=== PATIENT | female | born 1940 | race Caucasian/White ===

== ENCOUNTER → 2023-09-26 11:25 | Outpatient (REF) | payer MEDICARE, BC, SELFPAY | LOC: HWRAD 11:25 | PROVIDERS: ATTENDING PHYSICIAN Family Medicine | DX: M81.0 Age-related osteoporosis without current pathological fracture (principal) | CPT/HCPCS: 77080 ==

== ENCOUNTER 2023-11-17 20:06 | Emergency (ER) | payer MEDICARE, BC, SELFPAY ==
[2023-11-17 20:11] VITALS: BP 161/100
[2023-11-17 20:26] LABS: % Basophils 1.2 % (0-2); % Eosinophils 3.9 % (0-6); % Immature Granulocytes 1.1 % (0-0.5); % Lymphocytes 26.1 % (20.5-51.1); % Monocytes 12.2 % (1.7-9.3); % Neutrophils 55.5 % (42.2-75.2); Absolute Basophils 0.1 10^3/uL (0-0.2); Absolute Eosinophils 0.4 10^3/uL (0-0.7); Absolute Immature Granulocytes 0.1 10^3/uL (0-0.05); Absolute Lymphocytes 2.6 10^3/uL (1.2-3.4); Absolute Monocytes 1.2 10^3/uL (0.1-0.6); Absolute Neutrophils 5.6 10^3/uL (1.4-6.5); Hematocrit 35.1 % (37.0-47.0); Hemoglobin 12.7 g/dL (12.0-16.0); Mean Corp Hgb Conc. 36.2 g/dL (33.0-37.0); Mean Corpuscular Volume 99.4 fL (81.0-99.0); Mean Platelet Volume 9.8 fL (7.4-10.4); Nucleated Red Blood Cells % 0 %; Platelet Count 111 10^3/uL (130-400); Red Blood Cell Count 3.53 10^6/uL (4.20-5.40); Red Cell Dist. Width 13.4 % (11.5-14.5); White Blood Cell Count 10.1 10^3/uL (4.8-10.8)
[2023-11-17 20:43] LABS: ALT (SGPT) 22 U/L (0-35); AST (SGOT) 29 U/L (14-36); Albumin 4.3 g/dl (3.5-5.0); Alkaline Phosphatase 78 U/L (38-126); Blood Urea Nitrogen 17 mg/dl (7-17); Calcium 9.4 mg/dl (8.4-10.2); Carbon Dioxide 30 mmol/L (22-30); Chloride 94 mmol/L (98-107); Glucose 105 mg/dl (70-99); Potassium 3.9 mmol/L (3.5-5.1); Sodium 131 mmol/L (135-145); Total Bilirubin 0.4 mg/dl (0.2-1.3); Total Protein 6.8 g/dl (6.3-8.2); eGFR > 60.00
[2023-11-17 20:51] VITALS: BP 162/92
[2023-11-17 20:52] LABS: Troponin I < 0.012 ng/ml
[2023-11-17 21:00] VITALS: BP 151/73
[2023-11-17 22:00] VITALS: BP 184/93
--- NOTE | 2023-11-17 23:53 | ED.GENMED ---
History of Present Illness
General
Chief Complaint: Fainting/Passed Out
Source: patient and family
Exam Limitations: none
Time Seen by Provider: 11/17/23 21:22
Nursing documentation reviewed up to this point in time: agreed with
Travel History
Have you had any contact with someone who has COVID-19?: No
Do you have any symptoms of coronavirus? Fever > 100 degrees, chills, cough, shortness of breath, sore throat, loss of taste or smell, muscle aches, or headache?: No
History of Present Illness
History of Present Illness:
Patient presents to ED after witnessed syncopal episode at home this afternoon. Patient states that she was sitting inside a house where it was extremely hot. Patient was sweating as well as other for members. Patient all of a sudden felt dizzy
and notified her family members. Per daughter, who was with the patient, patient was slowly lower to the floor by multiple family members. In the process, patient unfortunately twisted her knee, and is complaining of left knee pain with swelling.
Patient herself, however, is adamant about remembering the entire event, and denies passing out. Denies headache. Denies preceding chest pain or palpitations. Denies confusion afterwards. Per daughter, patient was minimally responsive for for at
least 2 to 3 minutes. Patient 3 weeks ago had 1 additional similar episode, when she felt dizzy after feeling hot and briefly lost balance.
Past History
Past History
ED Past Medical History: Other ([facility])
Social History
Personal:
Living: with family
Review of Systems
Review of Systems
Allergies reviewed?: Yes
All Other Systems: ROS reviewed and negative except as documented in HPI and ROS
Constitutional: Reports no symptoms
EENT: Reports no symptoms
Respiratory: Denies trouble breathing
Cardiac: Reports other (Near syncope); Denies chest pain or palpitations
ABD/GI: Reports no symptoms
Musculoskeletal: Reports no symptoms
Skin: Reports no symptoms
Neurological: Reports no symptoms
Phy Exam
Physical Exam
Physical Exam:
Physical Exam
General: no apparent distress, not acutely ill. afebrile.
Head: nc/at. eomi
Neck: supple. no meningeal signs.
Heart: s1/s2 regular rate and rhythm, no murmur. equal radial pulses.
Lungs: no acute respiratory distress. clear bilaterally
Abdomen: normal bowel sounds. not tender.
Neuro: alert and oriented. no focal neurological deficits
Skin: no rash
Psychiatric: well kept. interactive and cooperative
Extremities: left knee with suprapatellar swelling with mild diffuse tenderness to palpation.
Course
Orders/Labs/Results
Orders:
Orders
11/17/23 20:12
EKG [Electrocardiogram (*1)] Urgent
Reason for Study: Syncope
EKG- Treatment ONCE
11/17/23 20:22
Complete Blood Count/With Diff Urgent
Comprehensive Metabolic Panel Urgent
Troponin I Urgent
11/17/23 22:08
CR Ankle - Left Min 3 Views Urgent
Comment:
Reason For Exam: trauma
CR Knee - Left 4 Or More View* Urgent
Comment:
Reason For Exam: trauma
Abnormal Lab Results
11/17/23
20:22
RBC 3.53 L 10^6/uL
(4.20-5.40)
Hct 35.1 L %
(37.0-47.0)
MCV 99.4 H fL
(81.0-99.0)
MCH 36.0 H pg
(27.0-31.0)
Plt Count 111 L 10^3/uL
(130-400)
Abs Immat Gran (auto) 0.1 H 10^3/uL
(0-0.05)
Absolute Monos (auto) 1.2 H 10^3/uL
(0.1-0.6)
Immature Gran % 1.1 H %
(0-0.5)
Monocytes % 12.2 H %
(1.7-9.3)
Sodium 131 L mmol/L
(135-145)
Chloride 94 L mmol/L
(98-107)
Glucose 105 H mg/dl
(70-99)
11/17/23 20:22
11/17/23 20:22
Vital Signs
Initial and Last Documented VS:
Initial Vital Signs
Temp Pulse Resp Pulse Ox
97.9 F 79 18 100
11/17/23 20:09 11/17/23 20:09 11/17/23 20:09 11/17/23 20:09
Last Documented Vital Signs
Temp Pulse Resp BP Pulse Ox
97.9 F 72 14 158/73 99
11/17/23 20:09 11/18/23 00:19 11/18/23 00:19 11/18/23 00:19 11/18/23 00:19
MDM/Problems Addressed
MDM/Problems Addressed:
Pacemaker interrogated: No arrhythmia detected.
X-ray: No acute fracture noted.
History and exam consistent with likely vasovagal response, with unfortunate knee sprain during the process. Patient otherwise is hemodynamically stable and neurologically intact, at time of discharge to the care of her daughter. Patient will be
advised to utilize walker at home, ice application, along with PCP follow-up as an outpatient. In addition, patient advised to repeat blood work in 1 to 2 weeks, as blood work revealed mild hyponatremia. Patient does on history report drinking
plenty of water, which leads me to believe perhaps that hyponatremia may be secondary to overhydration.
*Critical Care Note
Total Time (30-74mins, 75-104mins- exclusive of procedures): Not Applicable
ED Attending Note
-
Portions of this chart may have been created with voice recognition software.� Occasional wrong word or��sound alike� substitutions may have occurred due to the inherent limitations of voice recognition software.
Discharge Plan
Departure
Patient Disposition: Home (Routine Discharge)
Date of Disposition: 11/17/23
Time of Disposition: 23:53
Patient with high blood pressure during this ER visit?: Yes
Discharge Problem:
Vasovagal response, Knee sprain, Hyponatremia
Instructions: Vasovagal Response (DC), Knee Sprain ED, Hyponatremia
Prescriptions:
No Action
B 12
1,000 mg PO DAILY
cetirizine 10 MG tablet
10 mg PO DAILY
clonazepam 0.5 MG tablet
0.5 mg PO HS
calcium carbonate [Calcium 600] 600 MG tablet
600 mg PO BID
levothyroxine 50 MCG tablet
50 mcg PO DAILY
simvastatin 20 MG tablet
20 mg PO DAILY
coenzyme Q10 [CoQ-10] 100 MG capsule
100 mg PO BID
cholecalciferol (vitamin D3) [Vitamin D3] 1,000 UNIT tablet
1,000 unit PO BID
omega-3 fatty acids-fish oil [Fish Oil] 1,000 MG capsule
1 cap PO BID
alpha lipoic acid 300 MG capsule
600 mg PO BID
Forteo
20 mcg DAILY
Iron
65 mg PO BID
Super B Complex
1 tab PO DAILY
Referrals:
Fermin Galloway DO [Family Provider] -
Activity Restrictions/Additional Instructions:
As discussed, please follow-up with your primary care physician for reevaluation next week. In addition, recommend repeat blood work in 1-2 wks, as your sodium level was noted to be mildly low.
Interventions
Interventions:
*Risk Screen - Suicide Last Done: 11/17/23 22:09
*General Assessment Last Done: 11/17/23 22:09
*Neglect/Abuse Screening Last Done: 11/17/23 22:09
ED- Fall Risk Assessment Last Done: 11/17/23 22:09
*Nursing Disposition Last Done: 11/18/23 00:20
ED- Cardiac Assessment Last Done: 11/17/23 22:09
ED- Neurological Assessment Last Done: 11/17/23 22:09
Discharge Date and Time
Discharge Date/Time: 11/18/23 00:21
Print Language: NEPALI
[2023-11-18 00:19] VITALS: BP 158/73
== END 2023-11-18 00:21 | disposition home or self-care (01) ==
LOC: EMR 20:06
PROVIDERS: EMERGENCY PHYSICIAN Emergency Medicine; FAMILY PHYSICIAN Family Medicine
DX: R55 Syncope and collapse (principal); E87.1 Hypo-osmolality and hyponatremia; S83.92XA Sprain of unspecified site of left knee, initial encounter; M25.462 Effusion, left knee; X50.1XXA Overexertion from prolonged static or awkward postures, initial encounter; R03.0 Elevated blood-pressure reading, without diagnosis of hypertension; D69.3 Immune thrombocytopenic purpura; Z88.6 Allergy status to analgesic agent; Z91.041 Radiographic dye allergy status
CPT/HCPCS: 99285; 73564; 73610; 80053; 84484; 85025; 93005